=== PATIENT | female | born 1970 | race Caucasian/White ===

== ENCOUNTER 2017-03-12 09:11 | Outpatient (CLI) | payer BC, OTHER ==
[~2017-03-12 09:11] MED LIST: GLUC-162 PO; MULT-1045 PO
[2017-03-13 08:08] LABS: *TESTOSTERONE, SERUM 4 ng/dL (8-48); FOLLICLE STIMULATION HORMONE 23.2 mIU/mL (.); LUTEINIZING HORMONE 13.5 mIU/mL (.); PROLACTIN 4.9 ng/mL (4.8-23.3)
== END 2017-03-12 23:59 | disposition home or self-care (01) ==
LOC: LAB 09:11
PROVIDERS: ATTEND Family Medicine
DX: N95.9 Unspecified menopausal and perimenopausal disorder (principal)
CPT/HCPCS: 36415; 83001; 83002; 84146; 84402; 84403

== ENCOUNTER 2018-04-28 18:51 | Emergency (ER) | payer BC, OTHER ==
[~2018-04-28] VITALS: Ht 165.1 cm; Wt 81.6 kg
--- NOTE | 2018-04-28 19:10 | NUR ---
PATIENT WALKED INTO ER C/O BILATERAL EYE REDNESS. PATIENT STATES SHE WOKE UP WITH PUSS ON BILATREAL. DENIES VISUAL CHANGES.
[2018-04-28] MEDS ORDERED: TETRACAINE HCL 0.5% OPHT DROP 2 ML BOTTLE ONE (19:26)
[2018-04-28] MEDS ORDERED: FLUORESCEIN SODIUM 1 MG STRIP ONE (19:26)
[2018-04-28] MEDS ORDERED: TETRACAINE HCL 0.5% OPHT DROP 2 ML BOTTLE OP ONE (19:30)
[2018-04-28] MEDS ORDERED: FLUORESCEIN SODIUM 1 MG STRIP OP ONE (19:30)
--- NOTE | 2018-04-28 19:45 | NUR ---
Patient discharged to home in stable conditon. Written and verbal after care instructions given. Patient verbalizes understanding of instructions. WALKED OUT OF ER WITH NO DISTRESS NOTED
[2018-04-28 19:46] VITALS: BP 120/70
== END 2018-04-28 19:46 | disposition home or self-care (01) ==
LOC: ER 18:52
DX: B30.9 Viral conjunctivitis, unspecified (principal); Z88.0 Allergy status to penicillin; Z79.899 Other long term (current) drug therapy
CPT/HCPCS: 99283; A4663

== ENCOUNTER → 2018-05-09 | Outpatient (CLI) | payer BC, OTHER ==
[2018-05-10 07:37] LABS: BASOPHILS % (AUTO) 0.4 % (0.0-2.0); EOSINOPHILS # (AUTO) 0.1 K/uL (0.0-0.7); EOSINOPHILS % (AUTO) 1.6 % (0.0-7.0); HEMATOCRIT 38.7 % (31.2-41.9); HEMOGLOBIN 13.1 g/dL (10.9-14.3); LYMPHOCYTES # (AUTO) 1.9 K/uL (20.0-40.0); LYMPHOCYTES % (AUTO) 35.1 % (20.5-51.5); MEAN CORPUSCULAR HEMOGLOBIN 28.8 uug (24.7-32.8); MEAN CORPUSCULAR HGB CONC 34 g/dL (32.3-35.6); MEAN CORPUSCULAR VOLUME 85.5 fL (75.5-95.3); MONOCYTES # (AUTO) 0.3 K/uL (2.0-10.0); MONOCYTES % (AUTO) 5.9 % (0.0-11.0); NEUTROPHILS # (AUTO) 3.2 K/uL (1.8-8.9); PLATELET COUNT (AUTO) 211 K/uL (179-408); RED BLOOD CELL COUNT(AUTO) 4.52 MIL/uL (3.63-4.92); WHITE BLOOD COUNT (AUTO) 5.6 K/uL (3.8-11.8)
[2018-05-10 07:50] LABS: BILIRUBIN,TOTAL 0.5 mg/dL (0.2-1.0); CREATININE 0.8 mg/dL (0.6-1.3); TOTAL PROTEIN, SERUM 7.3 g/dL (6.4-8.2)
[2018-05-10 08:14] LABS: THYROID STIMULATING HORMONE 3.25 mIU/mL (0.358-3.740)
== END | disposition home or self-care (01) ==
LOC: LAB 11:43
PROVIDERS: ATTEND Family Medicine
DX: R89.1 Abnormal level of hormones in specimens from other organs, systems and tissues (principal)
CPT/HCPCS: 36415; 82306; 84443; 85025

== ENCOUNTER 2020-12-22 10:26 | Outpatient (CLI) | payer BC, OTHER ==
[~2020-12-22 10:26] MED LIST changes: +LEVO500T2 PO; +METR500T PO
[2020-12-22 10:53] LABS: BASOPHILS % (AUTO) 0.5 % (0.0-2.0); EOSINOPHILS # (AUTO) 0.1 K/uL (0.0-0.7); EOSINOPHILS % (AUTO) 1.4 % (0.0-7.0); HEMATOCRIT 39.3 % (31.2-41.9); HEMOGLOBIN 13.4 g/dL (10.9-14.3); LYMPHOCYTES # (AUTO) 2.4 K/uL (20.0-40.0); LYMPHOCYTES % (AUTO) 31.9 % (20.5-51.5); MEAN CORPUSCULAR HEMOGLOBIN 28.7 uug (24.7-32.8); MEAN CORPUSCULAR HGB CONC 34 g/dL (32.3-35.6); MEAN CORPUSCULAR VOLUME 84.3 fL (75.5-95.3); MONOCYTES # (AUTO) 0.3 K/uL (2.0-10.0); MONOCYTES % (AUTO) 4.5 % (0.0-11.0); NEUTROPHILS # (AUTO) 4.6 K/uL (1.8-8.9); NEUTROPHILS % (AUTO) 61.7 % (38.5-71.5); PLATELET COUNT (AUTO) 232 K/uL (179-408); RED BLOOD CELL COUNT(AUTO) 4.66 MIL/uL (3.63-4.92); WHITE BLOOD COUNT (AUTO) 7.5 K/uL (3.8-11.8)
[2020-12-22 10:56] LABS: *BILIRUBIN,URIN NEGATIVE (NEGATIVE); *BLOOD, URINE NEGATIVE (NEGATIVE); *CLARITY,URINE CLEAR (CLEAR); *COLOR,URINE YELLOW (YELLOW); *KETONES,URINE NEGATIVE (NEGATIVE); *UROBILINOGEN,URINE 0.2 E.U./dl (NORMAL); LEUKOCYTE ESTERASE ,URINE NEGATIVE (NEGATIVE); NITRITE, URINE NEGATIVE (NEGATIVE); PH,URINE 5.5 (5.0-8.0); UGLUCOSE NEGATIVE (NEGATIVE)
[2020-12-22 11:13] LABS: THYROID STIMULATING HORMONE 3.414 mIU/mL (0.358-3.740)
[2020-12-22 11:30] LABS: BILIRUBIN,TOTAL 0.5 mg/dL (0.2-1.0); CREATININE 0.8 mg/dL (0.6-1.3); TOTAL PROTEIN, SERUM 7.6 g/dL (6.4-8.2); URIC ACID 5.2 mg/dL (2.6-6.0)
== END 2020-12-22 23:59 | disposition home or self-care (01) ==
LOC: LAB 10:26
PROVIDERS: ATTEND Family Medicine
DX: G56.03 Carpal tunnel syndrome, bilateral upper limbs (principal); M25.531 Pain in right wrist; M25.532 Pain in left wrist
CPT/HCPCS: 36415; 73110; 82306; 84443; 84550; 85025

== ENCOUNTER 2021-06-02 18:23 | Emergency (ER) | payer BC, OTHER ==
[~2021-06-02] VITALS: Ht 165.1 cm; Wt 81.6 kg
--- NOTE | 2021-06-02 18:44 | NUR ---
at bedside for assessment
[2021-06-02] MEDS ORDERED: diphenhydrAMINE 50 MG/1 ML VIAL ONE (19:03)
[2021-06-02] MEDS ORDERED: METOCLOPRAMIDE HCL 10 MG/2 ML VIAL ONE (19:03)
[2021-06-02] MEDS ORDERED: KETOROLAC TROMETHAMINE 30 MG INJ ONE (19:03)
[2021-06-02] MEDS: IV NS 1000 ML 1,000 ML IV ONE (19:12)
[2021-06-02] MEDS: diphenhydrAMINE 50 MG/1 ML VIAL IV ONE (19:12)
[2021-06-02] MEDS: METOCLOPRAMIDE HCL 10 MG/2 ML VIAL IV ONE (19:12)
[2021-06-02] MEDS: KETOROLAC TROMETHAMINE 30 MG INJ IVP ONE (19:13)
--- NOTE | 2021-06-02 19:46 | NUR ---
Patient is resting comfortably in bed with eyes closed, no acute distress noted.
[2021-06-02] MEDS ORDERED: DIPH25CA83 PO (20:15)
[2021-06-02] MEDS ORDERED: METO-295 PO (20:15)
[2021-06-02] MEDS ORDERED: NAPR-1164 PO (20:15)
[2021-06-02 20:20] VITALS: BP 129/58
--- NOTE | 2021-06-02 20:20 | NUR ---
Patient discharged to home in stable condition. Written and verbal after care instructions given. Patient verbalizes understanding of instructions. Stressed follow up or return to ER for worsening s/s. Patient ambulates with steady gait, V/S stable, IV line removed, received paper Rx, and left with all personal belongings.
== END 2021-06-02 20:20 | disposition home or self-care (01) ==
LOC: ER 18:25
DX: G43.909 Migraine, unspecified, not intractable, without status migrainosus (principal); K76.0 Fatty (change of) liver, not elsewhere classified
CPT/HCPCS: 96365; 96375; 99284; J1200; J1885; J2765

== ENCOUNTER 2021-06-24 06:36 | Outpatient (CLI) | payer BC, OTHER ==
[~2021-06-24 06:36] MED LIST changes: +DIPH25CA83 PO; -GLUC-162 PO; -LEVO500T2 PO; +METO-295 PO; -METR500T PO; -MULT-1045 PO; +NAPR-1164 PO
== END 2021-06-24 23:59 | disposition home or self-care (01) ==
LOC: LAB 06:36
PROVIDERS: ATTEND Internal Medicine Gastroenterology
DX: Z01.812 Encounter for preprocedural laboratory examination (principal); Z20.822 Contact with and (suspected) exposure to COVID-19

== ENCOUNTER 2021-06-27 10:38 | Day surgery (SDC) | payer BC, OTHER ==
[2021-06-27] MEDS ORDERED: PROPOFOL 200 MG/20 ML BOTTLE IV ONE (10:39)
[2021-06-27] MEDS ORDERED: GLYCOPYRROLATE 0.2 MG/ML VIAL IJ ONE (10:39)
[2021-06-27] MEDS ORDERED: LIDOCAINE-MPF 2% 5 ML VIAL IJ ONE (10:39)
[2021-06-27 11:16] LABS: *BILIRUBIN,URIN NEGATIVE (NEGATIVE); *BLOOD, URINE NEGATIVE (NEGATIVE); *CLARITY,URINE CLEAR (CLEAR); *COLOR,URINE YELLOW (YELLOW); *KETONES,URINE NEGATIVE (NEGATIVE); *UROBILINOGEN,URINE 0.2 E.U./dl (NORMAL); LEUKOCYTE ESTERASE ,URINE NEGATIVE (NEGATIVE); NITRITE, URINE NEGATIVE (NEGATIVE); PH,URINE 5.5 (5.0-8.0); UGLUCOSE NEGATIVE (NEGATIVE)
[2021-06-27 11:18] LABS: HEMATOCRIT 41.3 % (31.2-41.9); MEAN CORPUSCULAR HEMOGLOBIN 28.6 uug (24.7-32.8); MEAN CORPUSCULAR VOLUME 84.2 fL (75.5-95.3); PLATELET COUNT (AUTO) 256 K/uL (179-408)
[2021-06-27 11:24] LABS: CREATININE 0.8 mg/dL (0.6-1.3); POTASSIUM 3.4 mmol/L (3.5-5.1)
[2021-06-27 11:30] LABS: BILIRUBIN,TOTAL 0.5 mg/dL (0.2-1.0); TOTAL PROTEIN, SERUM 7.7 g/dL (6.4-8.2)
== END 2021-06-27 15:18 | disposition home or self-care (01) ==
LOC: DS 10:38
PROVIDERS: ATTEND Internal Medicine Gastroenterology
DX: Z12.11 Encounter for screening for malignant neoplasm of colon (principal); R10.13 Epigastric pain; K29.70 Gastritis, unspecified, without bleeding; K57.30 Diverticulosis of large intestine without perforation or abscess without bleeding; K64.0 First degree hemorrhoids; K63.89 Other specified diseases of intestine; K31.89 Other diseases of stomach and duodenum; Z79.899 Other long term (current) drug therapy; Z98.890 Other specified postprocedural states; Z88.0 Allergy status to penicillin
CPT/HCPCS: 36415; 71045; 85025; 85730; 88313-TC; 88342; 93005; A4217; A4663; J3490; J7120